=== PATIENT | female | born 1950 | race Caucasian/White ===

== ENCOUNTER 2016-09-13 06:39 | Day surgery (SDC) | payer OTHER ==
[~2016-09-13] VITALS: Ht 162.6 cm; Wt 97.2 kg
[~2016-09-13 06:39] MED LIST: ATOR20TA38 PO; GLIP2.5T14 PO; METF1000 PO
[2016-09-13] MEDS ORDERED: [UNRECOGNIZED DRUG - OTHER] (07:31)
[2016-09-13] MEDS ORDERED: FLUOXETINE PO (07:33)
[2016-09-13] MEDS ORDERED: MELOXICAM PO (07:33)
[2016-09-13] MEDS ORDERED: RANITIDINE PO (07:33)
[2016-09-13] MEDS ORDERED: PROPOFOL 40 ML ONE (07:38)
[2016-09-13 07:46] VITALS: BP 125/62; RESP 14
[2016-09-13 09:01] VITALS: BP 136/62; RESP 14
--- NOTE | 2016-09-13 12:18 | GILP ---
DATE OF PROCEDURE: 09/13/2016 PROCEDURE PERFORMED: 1. Esophagogastroduodenoscopy and biopsy. 2. Colonoscopy. SURGEON: Ayesha Ramos MD. PREOPERATIVE DIAGNOSES: 1. Abdominal pain. 2. Chronic heartburn. POSTOPERATIVE DIAGNOSES: 1. Gastroesophageal reflux disease. 2. Hiatal hernia. 3. Gastritis with erosions. 4. Gastric mucosal biopsies were taken for Helicobacter pylori test. 5. Colonoscopy all the way to the cecum. 6. Internal hemorrhoids. 7. No colon neoplasm was identified. INDICATION: Ms Aiyana Carpenter is a 66-year-old female patient who had upper abdominal pain and chronic heartburn not responding to therapy. The patient also needed a screening colonoscopy. The procedures and possible complications were well explained to the patient. The patient understood and consented to the procedure. DESCRIPTION OF PROCEDURE: Under the influence of anesthesia, the gastroscope was carefully introduced into the esophagus. Under direct vision it was advanced to the stomach into the pylorus into the duodenal bulb, and descending duodenum. Findings esophagus: The patient had hiatal hernia and gastroesophageal reflux disease. Stomach: She had gastritis. Gastric mucosal biopsies were taken for Helicobacter pylori test. Duodenum was normal. The colonoscope was carefully introduced in the rectum. Under direct vision it was advanced all the way to the cecum. Findings: The patient had internal hemorrhoids. No colon neoplasm was identified. The patient tolerated the procedures very well. There was no complication from the procedures. At the end of procedure she was awake with stable vital signs and she was discharged home in care of her family. IMPRESSION: Please see postoperative diagnoses. PLAN: 1. Omeprazole 40 mg p.o. q.a.m. 2. Await Helicobacter pylori test report. 3. Next screening colonoscopy in 10 years. Dictated By: MD LEROY Mejia/jose/poncho /Document#: [id number]
[2016-09-13 12:55] VITALS: Ht 162.6 cm; Wt 97.2 kg
== END 2016-09-13 09:05 | disposition home or self-care (01) ==
LOC: GIL 06:39
PROVIDERS: ATTEND Internal Medicine Gastroenterology
DX: Z12.11 Encounter for screening for malignant neoplasm of colon (principal); K21.9 Gastro-esophageal reflux disease without esophagitis; K44.9 Diaphragmatic hernia without obstruction or gangrene; K29.60 Other gastritis without bleeding; K64.8 Other hemorrhoids; E11.9 Type 2 diabetes mellitus without complications; E78.5 Hyperlipidemia, unspecified
CPT/HCPCS: 43239; 45378; 82962; 87081; Z7610